=== PATIENT | female | born 1950 | race Caucasian/White ===

== ENCOUNTER 2016-12-14 09:49 | Outpatient (CLI) | payer OTHER ==
[2012-11-16 19:17] VITALS: BP 126/86
[2016-12-14 10:37] LABS: eGFR (African) > 60; eGFR (Non-African) > 60
--- NOTE | 2016-12-14 18:51 | Diagnostic Imaging Report ---
[facility] [id number] [facility] 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 FINDINGS: Examination right hip in AP and frog-leg lateral views demonstrates mild degenerative changes with slight narrowing of the joint space. There is no evident fracture and no lytic or blastic lesion. IMPRESSION: Mild degenerative changes. No fracture. Electronically signed on Dec 14, 2016 2:21:39 PM POLISHING MACHINE OPERATOR HELPER by: Alex MAN
== END 2016-12-14 09:50 ==
LOC: LAB 09:49
PROVIDERS: ATTEND Family Medicine
DX: E78.2 Mixed hyperlipidemia (principal); M25.551 Pain in right hip
CPT/HCPCS: 36415; 73502; 80053; 80061

== ENCOUNTER 2018-08-09 07:50 | Outpatient (CLI) | payer MEDICARE, OTHER ==
[2012-11-16 19:17] VITALS: BP 126/86
[2018-08-09 08:46] LABS: eGFR (Non-African) > 60
== END 2018-08-09 07:52 ==
LOC: LAB 07:50
PROVIDERS: ATTEND Family Medicine
DX: E78.2 Mixed hyperlipidemia (principal)
CPT/HCPCS: 36415; 80053; 80061

== ENCOUNTER 2019-08-28 09:02 | Outpatient (CLI) | payer MEDICARE, OTHER ==
[2012-11-16 19:17] VITALS: BP 126/86
--- NOTE | 2019-08-28 16:00 | Diagnostic Imaging Report ---
PATIENT MR#: [id number] PATIENT PATIENT NAME: BETTYE FRANCOIS DATE OF : 1950 REFERRING PHYSICIAN: Iza Minor EXAM DATE: 08/28/2019 ACCESSION NUMBER: [id number] EXAM DESCRIPTION: SHOULDER 2 VIEWS OR MORE CLINICAL HISTORY: LEFT SHOULDER, PAIN SINCE FALL IN JANUARY COMPARISON: No study for comparison is available at the time of interpretation. TECHNIQUE: DX left shoulder, 3 views Osseous structures: The osseous structures are normal with no evidence of fracture or dislocation. Th ere is no osseous lesion or periosteal reaction. Joint spaces: The bones are well aligned. No articular surface abnormality is noted. Soft tissues: Minute calcification noted within the distal rotator cuff tendon likely indicating calc ific tendinosis. IMPRESSION: 1. Rotator cuff mild calcific tendinosis. 2. Otherwise normal left shoulder radiograph. Read by: Dr. Jae Nguyen Transcribed by: Jae Nguyen Transcribed Date: 08/28/2019 3:59:07 PM Electronically signed by: Dr. Jae Nguyen Date signed: 08/28/2019 3:59:24 PM
== END 2019-08-28 09:12 ==
LOC: RAD 09:02
PROVIDERS: ATTEND Family Medicine
DX: M25.512 Pain in left shoulder (principal); G89.29 Other chronic pain
CPT/HCPCS: 73030